=== PATIENT | female | born 1965 | race Caucasian/White ===

== ENCOUNTER → 2017-04-30 | Outpatient (CLI) | payer BC ==
[2017-04-30 10:14] LABS: HEMOGLOBIN 14.4 g/dL (12.2-16.2); LYMPH # 1.9 K/mm3 (0.7-4.5); LYMPH % 34.5 % (10-50.0)
[2017-04-30 12:41] LABS: BUN 13 mg/dL (7-18)
[2017-04-30 12:44] LABS: GFR (ESTIMATED) 88 ML/MIN (59-)
[2017-05-01 09:37] LABS: Vitamin B12 375 pg/mL (211-946)
[2017-05-04 03:36] LABS: 1,25-Dihydroxy, Vitamin D-2 <10 pg/mL (.); 1,25-Dihydroxy, Vitamin D-3 49 pg/mL (.); Total 1,25-Dihydroxy,Vitamin D 49 pg/mL (.)
--- NOTE | 2017-05-06 23:07 | RADIOLOGY REPORT PS360 ---
DIG MAMM-SCREEN АНДРЕЙ W/CAD CAD Screening ORDERING PHYSICIAN : Elizabeth Mosquera APRN PATIENT AGE: 51 years GENDER: Female COMPARISON: Previous mammograms: March 2016. INDICATION: Routine screening 51-year-old. No hormones no new complaints TECHNIQUE: Standard CC and MLO images were obtained. R2 CAD reviewed. FINDINGS. Mild/moderate breast density bilateral. RIGHT BREAST: On MLO view there is a area of density superior right breast which most likely is a summation shadow but does have a rather focal and slightly stellate character on MLO view. I would recommend MLO and 90 degree spot views of this area and if it persists a cc spot view. This likely resides at the upper outer quadrant right breast . It Labeled A. LEFT BREAST: . The left breast appears stable with no areas of concern in fact areas of density seen previous studies are less evident today. Follow-up in one year adequate on left. IMPRESSION: ............... RIGHT BREAST: *Small focal area of density right breast on today's right MLO view..-most likely due to summation shadow.... However I would encourage spot 90 degrees and cc views of this area to further evaluate. This focus Labeled A. Left breast:. No new areas of concern. Follow-up left breast one year. BI-RADS CATEGORY: 0_Incomplete: Need additional imaging. RECOMMENDED FOLLOWUP: Additional Mammography Spot Views right Breast (A letter has been sent to the patient regarding results of the study.)
== END ==
LOC: RAD 04-17 08:30
PROVIDERS: Nurse Practitioner Family
DX: Z12.31 Encounter for screening mammogram for malignant neoplasm of breast (principal); F41.9 Anxiety disorder, unspecified; E78.5 Hyperlipidemia, unspecified; Z00.00 Encounter for general adult medical examination without abnormal findings
CPT/HCPCS: G0202

== ENCOUNTER 2017-05-07 12:31 | Day surgery (SDC) | payer BC ==
--- NOTE | 2017-05-07 13:49 | Operative Note ---
Colonoscopy (Robert) Procedure date: 05/07/17 Date of : 63 Procedure:Colonoscopy Colonoscopy Indications: Mrs. Benson is a 51-year-old female who is here for initial screening colonoscopy. She reports no abdominal pain, weight loss, change in her bowel habits or rectal bleeding. She reports no family history of colon cancer. Performing Provider: Phong Jones MD Referrring Provider: [place] LEMUS Sedation: Fentanyl 200 mg IV/Versed 8 mg IV Procedure: Prior to the procedure, a history and physical exam was performed, and patient medications and allergies were reviewed. The risks and benefits of the procedure and the sedation options and risks were discussed with the patient. All questions were answered and informed consent was obtained. Patient identification and proposed procedure were verified by the physician and the nurse. The patient was placed in a left lateral decubitus position. Throughout the procedure, the patient's blood pressure, pulse, and oxygen saturations were monitored continuously. Findings: On digital rectal examination there was normal rectal tone. There were no external hemorrhoids. The colonoscope was introduced through the anal canal to the rectum and advanced to the cecum. The ileocecal valve and appendiceal orifice were identified. The scope was advanced a short distance into the ileum which appeared grossly normal. The scope was then withdrawn into the colon. The cecum, ascending and transverse colon and mucosa were grossly normal. There were scattered diverticuli throughout the descending and sigmoid colon (LEFT colon). The rectum itself was normal. Upon retroflexion within the rectum there were grade 1 internal hemorrhoids. Impressions: 1. Left-sided diverticulosis 2. Grade 1 internal hemorrhoids Recommendations: The patient will not require screening/surveillance colonoscopy again for 10 years by ACS guidelines. I would encourage fiber supplementation on a long-term daily maintenance basis. Complications: None EBL (ml): 0 at 1345
[2017-05-07 17:36] VITALS: BP 98/68
== END 2017-05-07 14:37 | disposition home or self-care (01) ==
LOC: SDC 12:31
PROVIDERS: Internal Medicine Gastroenterology
PROC: 0DJD8ZZ Inspection of Lower Intestinal Tract, Via Natural or Artificial Opening Endoscopic (ICD-10-PCS; principal; 2017-05-07 13:30)
DX: Z12.11 Encounter for screening for malignant neoplasm of colon (principal); K57.30 Diverticulosis of large intestine without perforation or abscess without bleeding; K64.0 First degree hemorrhoids

== ENCOUNTER → 2017-05-16 | Outpatient (CLI) | payer BC ==
--- NOTE | 2017-05-16 13:52 | RADIOLOGY REPORT PS360 ---
DIG MAMM-DX UNI A/VW-RT W/CAD COMPARISON: 04/30/2017 INDICATION: Follow-up abnormal mammogram ORDERING PHYSICIAN: Dilip Farrell MD PATIENT AGE: 51 years TECHNIQUE: Spot compression views FINDINGS: There is slight persistent asymmetric density noted in the upper outer left breast seen on the spot compression view probably related to overlapping fibroglandular tissue. This is not reproducible on the MLO view. Ultrasound recommended but cannot be performed on the day of the exam IMPRESSION: Probably overlapping fibroglandular tissue. Recommend confirmation with ultrasound BI-RADS CATEGORY: 0_Incomplete: Need additional imaging RECOMMENDED FOLLOWUP: Ultrasound the right breast (A letter has been sent to the patient regarding results of the study.)
== END ==
LOC: RAD 05-14 14:30
DX: R92.8 Other abnormal and inconclusive findings on diagnostic imaging of breast (principal)
CPT/HCPCS: G0206-RT

== ENCOUNTER → 2017-05-18 | Outpatient (CLI) | payer BC ==
--- NOTE | 2017-05-18 14:33 | RADIOLOGY REPORT PS360 ---
US BREAST-RT COMPLETE W/AXILLA COMPARISON: Screening mammogram 04/30/2017 and follow-up additional views right breast 05/16/2017 HISTORY: Possible developing asymmetric density right breast TECHNIQUE: January ultrasound upper outer quadrant right breast FINDINGS: Diffuse heterogenic echogenicity is seen in the upper outer quadrant. There is no suspicious cystic or solid mass and there are no findings to suggest architectural distortion. There are couple normal-sized nodes in the axilla. IMPRESSION: Ultrasound findings compatible with heterogenic fibroglandular parenchyma with no suspicious lesion seen recommend the patient continue with yearly screening mammography
== END ==
LOC: RAD 08:50
DX: R92.8 Other abnormal and inconclusive findings on diagnostic imaging of breast (principal)

== ENCOUNTER → 2017-06-05 | Outpatient (CLI) | payer BC ==
[2017-06-05 18:48] LABS: HEMOGLOBIN 13.1 g/dL (12.2-16.2); LYMPH # 2.4 K/mm3 (0.7-4.5); LYMPH % 33.1 % (10-50.0)
[2017-06-05 19:44] LABS: BUN 10 mg/dL (7-18)
[2017-06-05 19:52] LABS: GFR (ESTIMATED) 88 ML/MIN (59-)
== END ==
LOC: LAB 18:27
PROVIDERS: Nurse Practitioner Family
DX: M19.90 Unspecified osteoarthritis, unspecified site (principal); F41.9 Anxiety disorder, unspecified